=== PATIENT | male | born 1960 | race Caucasian/White ===

== ENCOUNTER → 2021-07-12 | Outpatient (CLI) | payer OTHER ==
--- NOTE | 2021-07-12 16:35 | MR ---
EXAMINATION TYPE: MR lumbar spine wo/w con DATE OF EXAM: 07/12/2021 COMPARISON: MRI lumbar spine March 22, 2016 HISTORY: Low back pain into legs, more so right leg, Prior surgery TECHNIQUE: Multiplanar, multisequence images of the lumbar spine is performed without and with IV contrast, util izing 6 mL intravenous Gadavist FINDINGS: Sagittal images of the lumbar spine show vertebral body heights and alignment to appear sta ble. Artifact from posterior intrapedicular rods and screws transfixing L4-S1 levels bilaterally and artificial disc material is redemonstrated. Vertebral body heights and disc space heights above this remain satisfactory. Multilevel disc desiccation is again seen The conus medullaris remains normal i n position and signal ending mid L1 level. The bone marrow signal intensity is within normal limits. No suspicious postcontrast enhancement. Mild multilevel anterior spurring. Axial images show T12-L1 and L1-L2 levels to remain within normal limits. Axial images at L2-L3 level show more prominent [id number] broad-based disc bulge effacing ante rior thecal sac and mild facet degenerative changes bilaterally. There is mild to moderate left great er than right bilateral anterior inferior neural foraminal narrowing. Interval degenerative progressi on from prior study noted. Axial images at L3-L4 level show artifact from surgical change. There is more prominent central disc herniation with left extrusion component extending inferiorly sagittal image 7. There is annular tear . There is effacement of anterior thecal sac. [id number] facet arthropathy bilaterally. Mild-to -moderate bilateral neural foraminal narrowing. Some degenerative progression from prior. Axial images at L4-L5 and L5-S1 levels show artifact from surgical change. There is posterior decompr ession changes. Spinal canal is preserved. Patent bilateral neural foramina. Ectatic abdominal aorta on current study measuring under 3.0 cm. IMPRESSION: Postsurgical changes lower lumbar spine. Alignment stable and satisfactory. Increasing de generative changes L2-L3 and L3-L4 levels noted.
== END | disposition home or self-care (01) ==
LOC: RADMRIMAIN 08:17
PROVIDERS: ATTEND Internal Medicine
DX: M51.36 Other intervertebral disc degeneration, lumbar region (principal)
CPT/HCPCS: 72158; A9585

== ENCOUNTER 2021-09-21 07:50 | Day surgery (SDC) | payer OTHER ==
[2021-09-21] MEDS ORDERED: diazePAM 5 MG TAB PO STA (08:39)
[2021-09-21 08:48] VITALS: TEMP 98
--- NOTE | 2021-09-21 13:05 | CT ---
EXAMINATION TYPE: CT lumbar myelogram DATE OF EXAM: 09/21/2021 COMPARISON: Correlation MRI HISTORY: 60-year-old male M54.5, low back pain, Lumbago oh. TECHNIQUE: Contiguous axial scanning of the lumbar spine performed after intrathecal administration o f 9 mL Isovue-M 200 coronal and sagittal reconstructions performed. CT DLP: 523.70 mGycm Automated exposure control for dose reduction was used. 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 Vertebral body heights are preserved. Satisfactory opacification of the spinal canal after subarachnoid injection. Postsurgical changes L4-S1 levels. Glenoid trace grade 1 retrolisthesis at L2-L3. Diffuse disc bulges are present at both L2-L3 and L3-L4. Ligamentum flavum thickening at L3-L4. Facet arthropathy mid to lower lumbar spine. Conus medullaris is normal. There is mild overall spinal canal stenosis at L2/L3 and more moderate at L3-L4. No holly canal compr omise. There is mild to moderate neuroforaminal narrowing secondary to facet arthropathy and disc bulging th roughout on both sides. No evident high-grade foraminal compromise. Mild degenerative change of the SI joints. Possible subtle 1.7 cm fluid collection along the dorsal midline in the interlaminar region, referred to axial image 61. IMPRESSION: 1. STATUS POST L4-S1 POSTERIOR AND INTERBODY FUSION. 2. FACET ARTHROPATHY AND DISC BULGE ABOVE THE FUSION. DEGENERATIVE TRACE GRADE 1 RETROLISTHESIS AT L2 -L3. 3. CHANGES RESULT IN MILD OVERALL SPINAL CANAL STENOSIS AT L2-L3 AND MORE MODERATE AT L3-L4. NO HOLLY CANAL COMPROMISE. 4. VARIABLE MILD AND MODERATE NEUROFORAMINAL NARROWING THROUGHOUT ON BOTH SIDES. NO HIGH-GRADE FORAMI NAL COMPROMISE SEEN. 5. SUSPECT A SUBTLE 1.7 CM FLUID COLLECTION ALONG THE DORSAL MIDLINE POSTERIORLY IN THE INTERLAMINAR REGION OF L5-S1. POSSIBLE POSTOPERATIVE SEROMA OR CHRONIC HEMATOMA. CORRELATE FOR ANY INFECTIOUS SIGN S/SYMPTOMS.
[2021-09-21 15:10] VITALS: RESP 16
[2021-09-21 15:11] VITALS: PULSE 50
[2021-09-21 15:12] VITALS: BP 135/80
--- NOTE | 2021-09-21 16:54 | FL ---
PROCEDURE: FL myelogram lumbosacral DATE: 09/21/2021 CLINICAL HISTORY: 60-year-old male M5 4.5, low back pain COMPLICATIONS: None SEDATION: 5 mg oral Valium administered by nursing. The patient and the patient's vital signs were monitored b y qualified independent radiology personnel. TECHNIQUE: The procedure and potential risks were explained to patient and an informed consent was obtained with teach back. Site and side was verified. A time out was performed. The patient was placed prone on the fluoroscopy table and the L4-L5 level was localized and the skin was marked and was prepped and draped in the usual sterile fashion. Lidocaine was used for local anesthesia. Utilizing fluoroscopic guidance a 22-gauge spinal needle was placed through the skin and into the subarachnoid space. Once clear CSF was visualized, 9 mL Isovue-M 200 was administered into the thecal sac. The patient tolerated the procedure well. After a 30 minute wait, the patient will be sent to CT for lumbar spine scan. The estimated blood loss was minimal. The patient's condition was unchanged following the procedure. Fluoroscopy time: 49 seconds Total images: 4 IMPRESSION: Successful L4-L5 intrathecal contrast injection for CT lumbar myelogram.
== END 2021-09-21 14:12 | disposition home or self-care (01) ==
LOC: RADPROMAIN 07:50
PROVIDERS: ATTEND Orthopaedic Surgery
DX: M48.061 Spinal stenosis, lumbar region without neurogenic claudication (principal); M51.36 Other intervertebral disc degeneration, lumbar region
CPT/HCPCS: 62304; 72132; Q9966

== ENCOUNTER 2021-12-11 08:55 | Inpatient (IN) | payer OTHER ==
--- NOTE | 2021-12-03 10:38 | P.HPOR ---
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 Location Diffuse Activity Modification Yes , unable to perform many of his daily functions due to his low back and radiculopathic symptomology. Hand Dominance Right DOI: Acute on chronic DOS: 06/03/[address] Martinez TREATMENTS COMPLETED: 6 weeks of PT completed? None since the time of the last appointment but has done it previously. How many sessions? N/A Did it help? No Physician directed home exercise completed? Yes, with no improvements. Medications List: [place] and Flexeril with mild improvements to his symptoms. Alternative interventions Chiropractic?:No. Injections Yes (lumbar NIECY) How many? 2 Did they help? No RFA: No SUBJECTIVE: Patient presents to the office for a pre-operative evaluation. Since the time of the last appointment the patient reports that his symptoms have continued to persist and give him significant issues. Patient reports that his symptoms are severe and he is unable to complete most of his daily functions due to pain. He has failed all conservative treatments tried and is ready to proceed with the discussed procedure. All questions and concerns were addressed and the patient expressed understanding. He denies any bladder or bowel issues, no perineal numbness/tingling, and ambulates without the use of any aides. HPI: Patient last presented to the office on 10/15/2021 for a follow up evaluation of his low back and to review the results of his CT scan obtained after the time of the last appointment. Since the last appointment he notes that his symptoms have failed to improve. With this, he states that he has been doing home exercises, without improvements, but denies having completed any additional PT since the time of the last appointment. Overall he feels that his symptoms have not improved. Due to his symptoms he notes that his daily functionality has deteriorated since the initial onset (no injury). Patient does present to the office today with the use of his LSO brace, which he reports does help him with stability. Of note, the patient does state that he is a daily smoker but does plan on stopping starting today. Mr. Palacio last presented to the office on 08/31/2021 for an evaluation of his low back. At that time the patient notes that he has had low back pain for many years, having a lumbar fusion done on 06/03/[address] Martinez. After this operation he notes that he did have any improvements to his symptoms but his pain has gradually returned. This return of pain has come without any injury or trauma after the operation. Since this onset of his symptoms after his operation he has noticed a considerable increase in his pain along with prominent weakness about the bilateral lower extremities, right worse than left. Regarding the lumbar pain he notes that it is diffuse throughout the low back and does radiate down into the bilateral hips. His primary concern at this time is the weakness in the right lower extremity. His symptoms are exacerbated with ambulation and standing for extended periods of time. Due to this he is unable to complete many of his daily functions. Regarding treatments he notes that he has done PT, home exercises, and had 2 lumbar NIECY injections. All of these did not relieve his symptoms. Otherwise the patient does not present to the office with the use of any ambulatory aides. The patients' past social, medical, family, surgical history, as well as review of systems, have been reviewed. Please refer to the Neurosurgery History and Physical form that has been scanned in to our electronic medical record system. 14 points review of systems completed and as stated in HPI, all other systems reviewed are negative. Review of Systems All systems: negative Constitutional: Reports as per HPI Past Medical History Past Medical History: Coronary Artery Disease (CAD), Deep Vein Thrombosis (DVT), GI Bleed, Hyperlipidemia, Hypertension, Vascular Disorder Additional Past Medical History / Comment(s): hx migraines, ruptured disk. L.E blood clot History of Any Multi-Drug Resistant Organisms: None Reported Past Surgical History: Appendectomy, Back Surgery, Heart Catheterization With St ent, Orthopedic Surgery, Tonsillectomy Additional Past Surgical History / Comment(s): Laminectomy and spinal fusion, luann shoulder surgery, COLONOSCOPY/endoscopy 06/24/16 Past Anesthesia/Blood Transfusion Reactions: No Reported Reaction Date of Last Stent Placement:: 2011 Past Psychological History: Anxiety Smoking Status: Current some day smoker Past Alcohol Use History: None Reported Additional Past Alcohol Use History / Comment(s): QUIT SMOKING 6 MONTHS AGO BUT HAS RECENTLY STARTED AGAIN. SMOKING LESS THAN 1/2 PPD. USING VAPORIZER. Past Drug Use History: Marijuana Additional Drug Use History / Comment(s): 1-2 x daily-use of marijuana. Uses medical marijuana for his back pain. - Past Family History Father Family Medical History: Cancer Additional Family Medical History / Comment(s): Father with lung cancer. Mother with hypertension Medications and Allergies Home Medications Medication Instructions Recorded Confirmed Type Atenolol 50 mg PO DAILY 05/02/14 09/21/21 History Cyclobenzaprine [Flexeril] 10 mg PO BID 05/02/14 09/21/21 History Prazosin HCl 5 mg PO BID 05/02/14 09/21/21 History Simvastatin [Zocor] 20 mg PO HS 05/02/14 09/21/21 History amLODIPine BESYLATE [Norvasc] 5 mg PO DAILY 05/02/14 09/21/21 History lisinopriL [Zestril] 20 mg PO DAILY 05/02/14 09/21/21 History HYDROcodone/APAP 10-325MG [E[place]ka 1 each PO Q6H 07/20/15 09/21/21 History 10] ALPRAZolam 1 mg PO BID 06/19/16 09/21/21 History Aspirin 325 mg PO DAILY 06/19/16 09/21/21 History Gabapentin [Neurontin] 300 mg PO TID 09/04/21 09/21/21 History Rivaroxaban [Xarelto] 2.5 mg PO DAILY 09/04/21 09/21/21 History Allergies Allergy/AdvReac Type Severity Reaction Status Date / Time clarithromycin [From Biaxin] Allergy Unknown Rash/Hives Verified 09/21/21 08:50 levofloxacin [From Levaquin] Allergy Unknown Rash/Hives Verified 09/21/21 08:50 Penicillins Allergy Unknown Rash/Hives Verified 09/21/21 08:50 Physical Examination Osteopathic Statement: *. No significant issues noted on an osteopathic structural exam other than those noted in the History and Physical/Consult. PHYSICAL EXAMINATION: General: Awake, alert, appropriate for age, in no acute distress. HEENT: No unusual neck masses around region of lateral neck triangle, thyroid, supraclavicular groove Extremities: Skin warm and dry without acute lesions, coloration, temperature, skin intact, no tenderness or erythema Integument: Hairy patches: Absent Dorsal skin dimples: Absent Cafe au lait spots: Absent Surgical incisions: No Palpation: Please see Pain drawing on Intake sheet for further detail. Midline spinal tenderness: No E6 Paralumbar tenderness: yes E6 Parathoracic tenderness: No E6 Buttocks tenderness: No E6 Special findings: yes Prominent left SI joint tenderness to palpation POSTURAL and MUSCULO-SKELETAL EVALUATION: Coronal Balance: NEUTRAL Recumbent testing: Patient is able to lay flat on back Sagittal Balance: NEUTRAL Shoulder Profile: LEVEL Pelvic Girdle: LEVEL Neck ROM: UNRESTRICTED Lumbar ROM: RESTRICTED Shoulder ROM: Symmetrical Hip ROM: Symmetrical Knee ROM: Symmetrical Hands: Normal appearance, symmetrical Feet: Normal appearance, Symmetrical VASCULAR STATUS : LEFT RIGHT Wrist Pulses INTACT INTACT Pedal Pulses (Dors. pedis & post.tibialis) INTACT INTACT Color NORMAL NORMAL Edema Absent Absent NEUROLOGIC EXAMINATION: Mental Status:Awake and alert, fully oriented, with normal attention, concentration and memory, and fluent, appropriate speech. Cranial Nerves: I: Olfactory not tested. II: Visual acuity normal, no visual field deficit noted with confrontation. III,IV: Normal pupillary reflexes & intact extraocular movements without nystagmus. V,: Intact symmetrical facial sensation. VII: Intact symmetrical facial motor movement VIII: Hearing intact. IX,X: Intact gag, swallow, & normal voice. XI: Sternocleidomastoid, trapezius function intact. XII: Tongue midline with normal movements. L'hermitte's Sign: Negative / absent Spurling'Sign: Absent bilaterally. Cubital percussion test: Absent bilaterally. Erwin-Tinel sign - Carpal region: Absent bilaterally. Straight Leg Raising: Absent bilaterally. Crossed straight leg raise: negative O8 MOTOR EXAM (0-5/5, N/T) STRENGTH RIGHT LEFT Shoulder Abd (not part of the ZHOU score) 5 5 Elbow Flexors 5 5 Elbow Extensor 5 5 Wrist Dorsiflexors 5 5 Finger Abductor 5 5 Carpenter Assistant 5 5 Hip Flexor (Not part of ZHOU Motor score) 4 4+ Knee Flexor 5 5 Knee Extensor 5 5 Ankle dorsiflexor 4 4+ Ankle plantarflexion 4 4+ Extensor hallucis 5 5 REFLEXES(0-4/2, NT) RIGHT LEFT Upper Extremities 2 2 Lower Extremities 2 2 Pathological Reflexes RIGHT LEFT Prasad's Absent Absent Clonus Absent Absent Babinski Absent Absent # Indicates mechanical impairment Muscle appearance: Symmetrical, without signs of atrophy or dystrophy. Sensory system (0-4, N/T) Test type RU MIKE RL LL Joint-Position 2 2 2 2 Vibration 2 2 2 2 Pain & LT sense 2 2 2 2 Dermatomal Deficit: None None L2-4 L3-5 R>L radiculopathy Gait and Functional Evaluation: Ambulatory aids: Independent Romberg's test: Intact bilaterally Toe heel walk / heel-toe walk intact while maintaining satisfactory balance? yes Squatting/straightening w/o assistance to a min of 60 degree knee flexion? yes Single leg stance: intact Trendelenburg sign negative bilaterally Hand and finger dexterity intact bilaterally? yes Disdiadochokinesis examination negative bilaterally? yes Results RADIOGRAPHIC STUDIES: XRay taken on 08/31/21 of Lumbar Spine: Multiple views of the lumbar spine obtained and reviewed in the office. This demonstrates postsurgical changes L4 to S1 with posterior lateral interbody fusion which is noted. There is good fusion construct anteriorly as well as posteriorly. Hardware appears to be in good position with no evidence of fracture dislocation or loosening. There is some adjacent segment disease noted at L3-L4 which is mild. No fracture dislocation otherwise noted.we will maintain sagittal balance as well as coronal balance. AP pelvis demonstrates congruent femoral last evidence level pelvis no fracture or dislocation MRI scan from 07/12/2021 of Lumbar Spine: this is reviewed and demonstrates again postsurgical changes L4 to S1 with hardware in good position of his fracture dislocation vision or other issues. There may be some residual foraminal stenosis on the right hand side at L4 5 and L5-S1 which is noted. Adjacent segment disease noted L3-L4 which is mild. No severe stenosis in this area. L2-3 showing mild stenosis secondary to broad-based disc bulge at this level. No fracture. CT myelogram from 09/21/2021 of the lumbar spine reviewed today by Dr. Solis indicates: This demonstrates moderate to severe stenosis from L2-L4 with the worst at L2-3 and L3-4. This is due to disc bulging, facet hypertrophy and ligamental hypertrophy causing central as well as foraminal stenosis at these levels. There is facet arthropathy noted at these levels as well however disc heights are fairly well maintained as well as alignment. There are no fractures or dislocations noted at this time. Assessment and Plan Assessment: 1. S/P L4-S1 fusion 2. L2-L3 stenosis severe 3. L3-L4 stenosis severe 4. Right lower extremity radiculopathy 5. Neurogenic claudication Plan: 1. Discussed a L2-L5 laminectomy with decompression based on his clinical findings, imaging, and failure to improve with conservative treatments. All risks and benefits of the procedure were discussed and the patient expressed understanding. Additionally all questions and concerns were answered and the patient would like to proceed with scheduling. Spine Surgery Risk Review Frank Palacio is a 61 y/p white male presenting for evaluation of low back pain. It was my pleasure to have seen and examined Frank Palacio. In our visit today we have had a chance to go over subjective complaints, physical examination findings and treatments including the natural course history without intervention and various interventional options. The patients imaging demonstrates XRAY: Multiple views of the lumbar spine obtained and reviewed in the office. This demonstrates postsurgical changes L4 to S1 with posterior lateral interbody fusion which is noted. There is good fusion construct anteriorly as well as posteriorly. Hardware appears to be in good position with no evidence of fracture dislocation or loosening. There is some adjacent segment disease noted at L3-L4 which is mild. No fracture dislocation otherwise noted.we will maintain sagittal balance as well as coronal balance.AP pelvis demonstrates congruent femoral last evidence level pelvis no fracture or dislocation. MRI: demonstrates again postsurgical changes L4 to S1 with hardware in good position of his fracture dislocation vision or other issues. There may be some residual foraminal stenosis on the right hand side at L4 5 and L5-S1 which is noted. Adjacent segment disease noted L3-L4 which is mild. No severe stenosis in this area. L2-3 showing mild stenosis secondary to broad-based disc bulge at this level.No fracture. CT Myelogram: demonstrates moderate to severe stenosis from L2-L4 with the worst at L2-3 and L3-4. This is due to disc bulging, facet hypertrophy and ligamental hypertrophy causing central as well as foraminal stenosis at these levels. There is facet arthropathy noted at these levels as well however disc heights are fairly well maintained as well as alignment. There are no fractures or dislocations noted at this time. On physical exam, Frank Palacio demonstrates bilateral lower extremity weakness with acute pain with palpation of the lumbar spine. I have explained to the patient that as their condition progresses it will cause further neurological deficits and eventual paralysis. Based on the patients imaging, physical exam, and the rapid progression and disabling nature of their symptoms, at this time I recommend surgery in the form or a: L2-L5 laminectomy with decompression. I discussed the risk and benefits of this procedure at length with Frank Palacio. The patient agreed to considered pursuing the procedure abovementioned. Prior to surgery, she should follow up with her PCP (Cardio, ID, IM etc) for clearance. Questions were invited and answered, and the patient wishes to proceed as outlined below. Currently, I am recommendin.L2-L5 laminectomy with decompression with possible Removal of hardware and reinstrumentation of L2-S1. 2.Follow up with PCP for surgical clearance 3.Review of surgical risks and benefits as well as an educational packet on the proposed surgical procedure. Risks: All surgical procedures come with inherent risks, including those related to positioning, anesthesia, intraoperative findings, and postoperative complications. It is important to understand that surgery does not come with any guarantee of a successful outcome as complications and adverse events are always possible. The patient was given a handout in office today discussing the surgical procedure and risks associated with the intervention, both of which were discussed with the patient. These risks include but are not limited to the following: * Experiencing same, different or even worse symptoms in back, neck, arms, or legs compared to before surgery. Requiring further surgery or other forms of treatment presently or at some time in the future at same or other levels of the intended spine surgery. On an extreme but fortunately relatively rare basis severe complication such as blindness, stroke, heart attack, temporary and/or permanent nerve injury, paralysis, coma, or may occur, sometimes without known explanation. Surgical complications may include but are not limited to risk of infection, fluid accumulation in the surgical dissection site, including a seroma or hematoma, that requires additional surgery, wound drainage, bleeding, new numbness or weakness, vision changes/loss, spinal fluid leakage, non-healing and/or infected incision, headaches, difficulty or inability to swallow, hoarseness, hemopneumothorax, pneumothorax, impotence, retrograde ejaculation, vaginal dryness; injury to nerves, spinal cord, blood vessels, lymphatics or other vital organs (i.e., bowel injury, injury to the great vessels); heterotopic bone formation; complications related to the hardware such as screws, rods, cages including misplaced hardware, device failure, instrumentation at the wrong spine level, hardware fracture/breakage, or hardware loosening; vertebral failure of the spinal column above or below the newly placed hardware; retained surgical instrumentations or devices and the need for further surgery. * Medical risks of the planned spine surgery include but are not limited to generalized Infections to the whole body or local areas outside of the surgical site (sepsis), heart attack, bleeding, anaphylaxis, meningitis, seizure, epilepsy, hearing loss, burn ward, laceration of the head or other areas of the body, bruising, hypersensitivity of the skin, bladder over distension; allergic reaction; shoulder injury related to positioning; fat, blood and air clots to other areas of the body like heart, lungs, brain; failure of internal organs such as lungs, kidneys, liver and excessive bleeding. If blood transfusions are necessary, note that transfusions may cause intolerance reactions such as anaphylaxis or other complex reactions. Despite best efforts, the results of spine surgery might not heal in terms of bone, soft tissues such as skin, fascia, ligaments, and joints. Additionally, in order to achieve best possible results, spine surgery may be carried out beyond the initially planned levels and involve decompression, fusion including insertion of hardware at levels other than the original intended area of surgical interest change some portions of the procedure in order to ensure the best possible outcomes. With spine surgery and spinal fusion, there are different off label uses of instrumentation (devices, implants and hardware) as well as biological substances (bone morphogenic proteins, demineralized bone matrix) as well as using extra bone from allograft sources (i.e. cadaver bone) or autograft (iliac crest bone, ribs, or the spine itself). The patient has been given information about these practices and their inherent risks and benefits. [facility] is an educational center that serves as a training facility for neurosurgical and orthopedic spine residents and fellows. Residents are physicians who are completing their surgical intensive training following medical school. They assist in the operating room with direct supervision of the attending surgeons. Greig are surgeons who have completed their training and eligible for board certification. They have opted for an elective year of more specialized training in their field. They assist in the operating room under the supervision of the attending surgeons. Physician assistants are medically trained surgical providers who function in the outpatient, inpatient, and operating room setting under the direct supervision of the attending surgeon. [facility] has multiple operating rooms with single and overlapping rooms running daily. They currently function under the required guidelines as produced by the [facility] Finance Committee with regards to the overlapping rooms and will continue to comply with changes to this policy as they occur. The requirements include and are complied with as follows: (1) the critical portions of the overlapping rooms will not occur at the same time, (2) the attending physician will be physically present during the critical portions of the procedure and immediately available during the entire case, and (3) a back-up attending is designated should the primary attending not be immediately available. The patient has had a chance to review all the listed information, has been given print outs detailing this information, and has had all his/her questions answered to their satisfaction. It was my pleasure to have seen and examined Frank Palacio. In our visit today we have had a chance to go over my understanding of our patient's current condition, the natural course history without intervention and various interventional options. Questions were invited and answered, and the patient wishes to proceed as outlined above. I have seen and examined the patient for 25 minutes and we have spent more than 50% of the time in repeat and detailed counseling about the patient's condition, its natural course history with out and as much as can be predicted with surgery and re-review of various surgical treatment options. In conclusion, Frank Palacio requested we proceed with the above suggested surgery and are willing to accept risks and limitations of the suggested surgery as nature of the disease process and our best attempts at treatment for the condition. Thank you again for allowing us to be part of your patient's care. Please don't hesitate to contact me if you have any further questions. Signed and authenticated by: Stewart Solis DO [facility] [address] [facility], [address] [address]
[2021-12-04 17:07] VITALS: BMI 26.1
[~2021-12-11 08:55] MED LIST: ACETAMINOPHEN TAB 500 MG TAB PO PRN; DEXAMETHASONE SOD PHOSPHATE 4 MG/ML 1 ML VIAL IV ONE; GABAPENTIN 300 MG CAP PO PRN; LIDOCAINE 1% (10MG/ML) FOR IV START INTRADERMA PRN; MIDAZOLAM 2 MG/2 ML VIAL IV PRN; ONDANSETRON 4 MG/2 ML VIAL IVP ONE; ONDANSETRON 4 MG/2 ML VIAL IVP PRN; TRANEXAMIC ACID 1,000 MG in SODIUM CHLORIDE 0.9% 100 ML IVPB PRN
[2021-12-11] MEDS: LACTATED RINGERS 1,000 ML IV SCH (09:33)
[2021-12-11 09:59] LABS: Basophils % (A) 0 %; Eosinophils # (A) 0.1 k/uL (0-0.7); Eosinophils % (A) 2 %; HCT 44.5 % (39.0-53.0); HGB 14.6 gm/dL (13.0-17.5); Lymphocytes # (A) 2.5 k/uL (1.0-4.8); Lymphocytes % (A) 37 %; MCH 31.6 pg (25.0-35.0); MCHC 32.8 g/dL (31.0-37.0); MCV 96.6 fL (80.0-100.0); Mean Platelet Volume 7.3; Monocytes # (A) 0.5 k/uL (0-1.0); Monocytes % (A) 8 %; Neutrophils # (A) 3.4 k/uL (1.3-7.7); Neutrophils % (A) 50 %; Platelet Count 231 k/uL (150-450); WBC 6.8 k/uL (3.8-10.6)
[2021-12-11] MEDS ORDERED: fentaNYL (PF) 50 MCG/ML 2 ML AMP IVP ONE ×2 (10:02→10:25)
[2021-12-11 10:08] LABS: Albumin 3.8 g/dL (3.5-5.0); Potassium 4.6 mmol/L (3.5-5.1); Total Protein 6.6 g/dL (6.3-8.2)
[2021-12-11 10:09] LABS: Calcium 9.1 mg/dL (8.4-10.2); Total Bilirubin 0.3 mg/dL (0.2-1.3)
[2021-12-11] MEDS ORDERED: MIDAZOLAM 2 MG/2 ML VIAL IVP ONE (10:27)
--- NOTE | 2021-12-11 11:03 | XR ---
EXAMINATION TYPE: XR chest 1V confirm line [facility] DATE OF EXAM: 12/11/2021 COMPARISON: Chest x-ray April 25, 2014 HISTORY: Central line placement. TECHNIQUE: Single AP portable frontal upright view of the chest is obtained. FINDINGS: There is new right internal jugular central venous catheter terminating in right atrium. T here is azygos lobe/fissure redemonstrated. No suspicious focal airspace opacity, pleural effusion, o r pneumothorax is seen bilaterally. The cardiac silhouette size is stable and within normal limits. Multilevel spurring in thoracic spine is redemonstrated. IMPRESSION: As above.
--- NOTE | 2021-12-11 11:04 | XR ---
EXAMINATION TYPE: XR chest 1V confirm line [facility] DATE OF EXAM: 12/11/2021 COMPARISON: 12/11/2021 HISTORY: Central line placement TECHNIQUE: Single frontal view of the chest is obtained. FINDINGS: Right-sided central line seen with tip overlying the SVC atrial junction. No pneumothorax. Underlying COPD noted. Heart size normal. No overt failure focal pneumonia. No pleural effusion. IMPRESSION: 1. Central line appears in good position with no sizable pneumothorax.
--- NOTE | 2021-12-11 11:19 | P.ANPRN ---
Procedure Note - Anesthesia - Invasive Line Right Arterial Line Time Out Performed: Yes Date of Procedure: 12/11/21 Time of Procedure: 10:01 Location of Patient: PreOp Preparation: Sterile Prep, Sterile Dressing Arterial Line Location: Radial Ultrasound Used: No Purpose - Visualization and Identification of Vasculature: No Image Stored and Saved: No Narrative: Central line placement per sterile protocol utilized.
--- NOTE | 2021-12-11 11:21 | P.ANPRN ---
Procedure Note - Anesthesia - Invasive Line Right Central Line Time Out Performed: Yes Date of Procedure: 12/11/21 Time of Procedure: 10:13 Location of Patient: PreOp Preparation: Sterile Prep, Sterile Dressing Arterial Line Location: Brachial (Right internal Jaqular vein) Ultrasound Used: Yes Purpose - Visualization and Identification of Vasculature: Yes Needle Guage: 7 F Image Stored and Saved: Yes Narrative: Central line placement per sterile protocol utilized.
[2021-12-11] MEDS ORDERED: LIDOCAINE 1% INJ 10MG/ML (20 ML MDV) ONE (12:48)
[2021-12-11] MEDS ORDERED: ROCURONIUM 10 MG/ML (5 ML VIAL) IV ONE (12:48)
[2021-12-11] MEDS ORDERED: NEOSTIGMINE 1 MG/ML 10 ML VIAL ONE (12:48)
[2021-12-11] MEDS ORDERED: MIDAZOLAM 2 MG/2 ML VIAL ONE (12:48)
[2021-12-11] MEDS ORDERED: fentaNYL (PF) 50 MCG/ML 2 ML AMP ONE (12:48)
[2021-12-11] MEDS ORDERED: SUCCINYLCHOLINE CHLORIDE 100 MG/5 ML SYR IV ONE (12:48)
[2021-12-11] MEDS ORDERED: PROPOFOL 10 MG/ML 20 ML VIAL IV ONE (12:48)
[2021-12-11] MEDS ORDERED: SODIUM CHLORIDE 0.9% 100 ML BAG ONE (12:48)
[2021-12-11] MEDS ORDERED: TRANEXAMIC ACID 1,000 MG/10 ML VIAL ONE (12:48)
[2021-12-11] MEDS ORDERED: KETOROLAC 15 MG/ML 1 ML VIAL ONE (12:48)
[2021-12-11] MEDS ORDERED: HYDROmorphone (PF) 1 MG/ML ONE (12:48)
[2021-12-11] MEDS ORDERED: GLYCOPYRROLATE 0.2 MG/ML 2 ML VIAL ONE (12:48)
[2021-12-11] MEDS ORDERED: KETAMINE 10 MG/ML 20 ML VIAL ONE (12:48)
[2021-12-11] MEDS ORDERED: BUPIVACAINE (PF) 0.25% 30 ML VIAL SQ ONE (13:50)
[2021-12-11] MEDS ORDERED: THROMBIN (BOVINE) 5,000 UNIT VIAL TOPICAL ONE (13:51)
[2021-12-11] MEDS ORDERED: GELATIN SPONGE,ABSORB (LARGE) 1 EACH SPONGE MISCELLANE ONE (13:51)
[2021-12-11] MEDS ORDERED: SODIUM CHLORIDE 0.9% 50 ML with ceFAZolin 2,000 MG IV ONE ×2 (16:53)
[2021-12-11] MEDS ORDERED: LACTATED RINGERS 1,000 ML IV ONE ×2 (16:55)
[2021-12-11] MEDS ORDERED: HYDROcodone/APAP 5-325MG 1 EACH TAB PO PRN (17:36)
[2021-12-11] MEDS: HYDROmorphone 0.5 MG/0.5 ML SYRINGE IVP PRN ×3 (18:02→20:56)
--- NOTE | 2021-12-11 18:22 | XR ---
EXAMINATION TYPE: XR chest 1V portable DATE OF EXAM: 12/11/2021 COMPARISON: 12/11/2021 HISTORY: Line placement TECHNIQUE: FINDINGS: Heart is normal. There is some mild linear density left lung base. There are no hilar katie s. There is no pleural effusion. There is a right central venous catheter with tip in the superior ve na cava. There are chest leads. IMPRESSION: Mild subsegmental atelectasis left lung base is new compared to exam earlier today. No he art failure.
--- NOTE | 2021-12-11 22:15 | CT ---
EXAMINATION TYPE: CT lumbar spine wo con DATE OF EXAM: 12/11/2021 COMPARISON: None HISTORY: L2-S1 FUSION CT DLP: 1001.8 mGycm Automated exposure control for dose reduction was used. Images obtained from the level of T11-S3 vertebra without contrast. There is normal alignment of the vertebra. There is disc prosthesis from L3 to S1. There is metal art ifact with posterior fusion surgery from L3 to S1. There is mild infiltrate or atelectasis at the pos terior lung bases. There is no lumbar paraspinal mass. Abdominal aorta is atheromatous. There is meta l artifact. There is a drain in the epidural space posteriorly at the L3 level. There is revision of the surgery at the lumbar spine at L3 level compared to last exam. IMPRESSION: There is revision of the posterior fusion surgery that now includes L3 level. There is postsurgical c hanges with drains and fluid and air bubbles in the posterior tissues. Exam limited by metal artifact . There is some mild infiltrate and atelectasis at the lung bases which is new compared to old exam.
[2021-12-11] MEDS: ACETAMINOPHEN TAB 325 MG TAB PO SCH (22:30)
[2021-12-11] MEDS: GABAPENTIN 300 MG CAP PO SCH (22:35)
[2021-12-12] MEDS: ACETAMINOPHEN TAB 325 MG TAB PO SCH ×5 (00:37→22:55)
[2021-12-12] MEDS: HYDROmorphone 0.5 MG/0.5 ML SYRINGE IVP PRN ×6 (00:38→22:55)
[2021-12-12] MEDS: CYCLOBENZAPRINE 5 MG TAB PO PRN ×4 (04:33→22:54)
[2021-12-12] MEDS: HYDROcodone/APAP 10-325MG 1 EACH TAB PO PRN ×4 (04:36→21:21)
[2021-12-12] MEDS: LACTATED RINGERS 1,000 ML IV SCH (06:00)
[2021-12-12 06:17] LABS: Basophils % (A) 0 %; Eosinophils # (A) 0.1 k/uL (0-0.7); Eosinophils % (A) 1 %; HCT 39.7 % (39.0-53.0); Lymphocytes # (A) 1.9 k/uL (1.0-4.8); Lymphocytes % (A) 14 %; MCH 31.7 pg (25.0-35.0); MCHC 32.8 g/dL (31.0-37.0); MCV 96.6 fL (80.0-100.0); Monocytes # (A) 0.9 k/uL (0-1.0); Monocytes % (A) 7 %; Neutrophils # (A) 10.6 k/uL (1.3-7.7); Neutrophils % (A) 78 %; Platelet Count 221 k/uL (150-450); RBC 4.11 m/uL (4.30-5.90); RDW 12.4 % (11.5-15.5); WBC 13.6 k/uL (3.8-10.6)
[2021-12-12] MEDS: GABAPENTIN 300 MG CAP PO SCH ×2 (07:52→21:21)
--- NOTE | 2021-12-12 08:14 | P.PN ---
Subjective Progress Note Date: 12/12/21 Pt s/e no issues overnight. Pain controlled. Has not been up. Gross in place. Denies new numbness/tingling. No bowel bladder issues. No perineal numbness. Objective - Vital Signs Vital signs: Vital Signs Temp 99.0 F 12/12/21 05:00 Pulse 75 12/12/21 05:00 Resp 16 12/12/21 05:00 BP 127/80 12/12/21 05:00 Pulse Ox 95 12/12/21 05:00 Intake & Output 12/11/21 12/12/21 12/12/21 18:59 06:59 18:59 Intake Total 2700 Output Total 830 800 Balance 1870 -800 Weight 80.8 kg Intake: IV 2700 Output: Drainage 200 Back 200 Urine 480 600 Estimated Blood Loss 350 Other: Voiding Method Indwelling Catheter - Exam 4+/5 all major muscle groups LE b/l 5/5 all UE b/l SILT L2-S1 Neg hoffmans Neg babnski No clonus 2/4 DTR all UE and LE 2/4 DP/PT pulses Incision CDI Drain 200 cc overnight Mild TTP - EENT Eyes: Present: PERRLA - Neck Neck: Present: normal ROM - Respiratory Details: Normal respirations - Cardiovascular Rhythm: regular - Gastrointestinal General gastrointestinal: Present: soft - Neurologic Neurologic: Present: CNII-XII intact - Musculoskeletal Musculoskeletal: Present: strength equal bilaterally - Psychiatric Psychiatric: Present: A&O x's 3 - Labs CBC & Chem 7: 12/12/21 05:21 12/11/21 09:27 Labs: Abnormal Lab Results - Last 24 Hours (Table) 12/11/21 12/12/21 Range/Units 09:27 05:21 WBC 13.6 H (3.8-10.6) k/uL RBC 4.11 L (4.30-5.90) m/uL Neutrophils # 10.6 H (1.3-7.7) k/uL Sodium 136 L (137-145) mmol/L Glucose 118 H (74-99) mg/dL AST 16 L (17-59) U/L Assessment and Plan Assessment: POD Revision L3-S1 fusion with L2-4 decompression 1. S/P L4-S1 fusion 2. L2-L3 stenosis severe 3. L3-L4 stenosis severe 4. Right lower extremity radiculopathy 5. Neurogenic claudication Plan: -Appreciate consultants -Pain control -GI/DVT ppx OK for heparin today -Maintain drain for now, record output -PT/OT -Teds/SCDs Early ambulation. OOB with all meals -Brace for up and about, no need for brace with PT -Walker for ambulation -Plan on home with home health 1-2 days
--- NOTE | 2021-12-12 09:05 | XR ---
EXAM TYPE: LUMBAR SPINE X RAY SERIES COMPARISON: NONE HISTORY: Postop TECHNIQUE: 2 views are submitted. FINDINGS: Intraoperative views demonstrate limited resolution postsurgical changes suggestive laminectomy with transpedicular screws. The limited assessment alignment is grossly IMPRESSION: Postoperative change
--- NOTE | 2021-12-12 18:11 | P.CONS ---
History of Present Illness - Reason for Consult Consult date: 12/12/21 - History of Present Illness Frank Palacio, is a 61-year-old male who was admitted to [facility] by Dr. Solis after presenting with a chief complaint of Low back pain, difficulty with almbulation, and lower extremities radiculopathy, patient has known history of chronic back pain requiring narcotics for pain management, he has known history of lumbar spine surgery in 2014, he also has a history of multiple falls with back injury. Today he underwent Lumbar laminectomy L3-S1 revision fusion with L2 -S1 decompression and removal of hardware, he was admitted to medical floor post surgery. Medical consultation was requested for management while hospitalized. Patient has a known history of hypertension, hyperlipidemia, coronary artery disease with previous history of angioplasty and stent placement, no recent stents in the last 12 months, he also has a history of lower extremity DVT followed by Dr. House and maintained on Xarelto. Xarelto was discontinued 10 days ago in anticipation of back surgery. On review of systems patient is alert and oriented 3 he is still complaining of back pain otherwise he denies any complaints at this time, there is no fever or chills no headache or dizziness no chest pain or shortness of breath no cough no nausea or vomiting no abdominal pain no diarrhea and no urinary symptoms. Past Medical History Past Medical History: Coronary Artery Disease (CAD), Deep Vein Thrombosis (DVT), GI Bleed, Hyperlipidemia, Hypertension, Vascular Disorder Additional Past Medical History / Comment(s): hx migraines, ruptured disk. L.E blood clot History of Any Multi-Drug Resistant Organisms: None Reported Past Surgical History: Appendectomy, Back Surgery, Heart Catheterization With Stent, Orthopedic Surgery, Tonsillectomy Additional Past Surgical History / Comment(s): Laminectomy and spinal fusion, luann shoulder surgery, COLONOSCOPY/endoscopy 06/24/16, BILAT KNEE SX Past Anesthesia/Blood Transfusion Reactions: No Reported Reaction Date of Last Stent Placement:: 2011 Past Psychological History: Anxiety Smoking Status: Current some day smoker Past Alcohol Use History: None Reported Additional Past Alcohol Use History / Comment(s): QUIT SMOKING 6 MONTHS AGO BUT HAS RECENTLY STARTED AGAIN. SMOKING LESS THAN 1/2 PPD. USING VAPORIZER. Past Drug Use History: Marijuana Additional Drug Use History / Comment(s): 1-2 x daily-use of marijuana. Uses medical marijuana for his back pain. - Past Family History Father Family Medical History: Cancer Additional Family Medical History / Comment(s): Father with lung cancer. Mother with hypertension Medications and Allergies Home Medications Medication Instructions Recorded Confirmed Type Atenolol 50 mg PO DAILY 05/02/14 12/11/21 History Cyclobenzaprine [Flexeril] 10 mg PO BID 05/02/14 12/11/21 History Prazosin HCl 5 mg PO BID 05/02/14 12/11/21 History Simvastatin [Zocor] 20 mg PO HS 05/02/14 12/11/21 History amLODIPine BESYLATE [Norvasc] 5 mg PO DAILY 05/02/14 12/11/21 History lisinopriL [Zestril] 20 mg PO DAILY 05/02/14 12/11/21 History HYDROcodone/APAP 10-325MG [[place] 1 each PO Q6H 07/20/15 12/11/21 History 10] ALPRAZolam 1 mg PO BID 06/19/16 12/11/21 History Gabapentin [Neurontin] 300 mg PO TID 09/04/21 12/11/21 History Rivaroxaban [Xarelto] 2.5 mg PO DAILY 09/04/21 12/11/21 History Allergies Allergy/AdvReac Type Severity Reaction Status Date / Time clarithromycin [From Biaxin] Allergy Unknown Rash/Hives Verified 12/11/21 09:23 levofloxacin [From Levaquin] Allergy Unknown Rash/Hives Verified 12/11/21 09:23 Penicillins Allergy Unknown Rash/Hives Verified 12/11/21 09:23 Physical Exam Vitals: Vital Signs Temp Pulse Resp BP Pulse Ox 12/12/21 12:58 98.3 F 74 18 135/88 98 12/12/21 05:00 99.0 F 75 16 127/80 95 12/11/21 19:36 97.6 F 60 16 138/86 97 12/11/21 18:50 60 18 138/67 99 12/11/21 18:30 62 18 135/76 100 12/11/21 18:15 67 18 152/87 100 12/11/21 18:00 65 18 147/80 100 12/11/21 17:45 67 20 153/88 100 12/11/21 17:41 96.8 F L 78 20 140/85 100 Intake and Output 12/12/21 12/12/21 12/12/21 06:59 14:59 22:59 Intake Total 2450 Output Total 221 95 0645 Balance -700 -40 1240 Intake: Intake, IV Titration 290 Amount Lactated Ringers 1,000 ml 240 @ 0 mls/hr IV [facility] Rx#:[id number] ceFAZolin 2 gm In Sodium 50 Chloride 0.9% 50 ml @ 100 mls/hr IVPB Q8H [facility] Rx#: [id number] Oral 2160 Output: Drainage 100 40 60 Back 100 40 60 Urine 600 1150 Other: Voiding Method Indwelling Catheter # Voids 3 In general patient is alert and oriented x 3 in no distress HEENT head normocephalic and atraumatic Neck is supple no JVD no goiter no lymphadenopathy no carotid bruit Chest examination is clear to auscultation no crackles no wheezing Cardiac exam reveals regular heart sounds S1 and S2 no gallops no murmurs Abdomen is soft nontender no organomegaly with normal bowel sounds Extremity exam reveals no edema no cyanosis or clubbing Neurological examination reveals no gross focal deficits Results CBC & Chem 7: 12/12/21 05:21 12/11/21 09:27 Labs: Abnormal Lab Results - Last 24 Hours (Table) 12/12/21 Range/Units 05:21 WBC 13.6 H (3.8-10.6) k/uL RBC 4.11 L (4.30-5.90) m/uL Neutrophils # 10.6 H (1.3-7.7) k/uL Assessment and Plan Plan: Chronic back pain, with history of previous surgery for lumbar spinal stenosis in 2014, patient underwent lumbar laminectomy L3-S1 revision fusion with L2-S1 decompression and removal of hardware on 12/12/2021 Underlying history of hypertension well-controlled on medications Underlying history of hyperlipidemia maintained on simvastatin Underlying history of coronary artery disease with previous history of angioplasty and stent placement Underlying history of lower extremity DVT Chronic back pain maintained on narcotics for pain management At this time home medication reviewed and reordered Will continue to hold Xarelto at this time Check labs in a.m. Will follow closely during this admission for medical management
[2021-12-12] MEDS: ATORVASTATIN 10 MG TAB PO SCH (21:21)
[2021-12-12] MEDS: ALPRAZolam 1 MG TAB PO SCH (21:21)
[2021-12-12] MEDS: PRAZOSIN 1 MG CAP PO SCH (21:43)
[2021-12-13] MEDS: HYDROcodone/APAP 10-325MG 1 EACH TAB PO PRN ×3 (03:42→17:17)
[2021-12-13] MEDS: HYDROmorphone 0.5 MG/0.5 ML SYRINGE IVP PRN ×4 (05:10→19:33)
[2021-12-13] MEDS: LACTATED RINGERS 1,000 ML IV SCH (07:30)
[2021-12-13] MEDS: ACETAMINOPHEN TAB 325 MG TAB PO SCH ×3 (07:34→17:17)
[2021-12-13] MEDS: GABAPENTIN 300 MG CAP PO SCH ×2 (07:38→21:20)
[2021-12-13] MEDS: ALPRAZolam 1 MG TAB PO SCH ×2 (07:39→21:20)
[2021-12-13] MEDS: atenoloL 50 MG TAB PO SCH (07:39)
[2021-12-13] MEDS: amLODIPine 5 MG TAB PO SCH (07:39)
[2021-12-13] MEDS: lisinopriL 20 MG TAB PO SCH (07:39)
[2021-12-13] MEDS: PRAZOSIN 1 MG CAP PO SCH ×2 (07:39→21:21)
[2021-12-13] MEDS: SENNOSIDES-DOCUSATE SODIUM 1 EACH TAB PO PRN ×2 (07:43→21:24)
--- NOTE | 2021-12-13 12:32 | P.PN ---
Subjective Progress Note Date: 12/13/21 Principal diagnosis: 1. S/P L4-S1 fusion 2. L2-L3 stenosis severe 3. L3-L4 stenosis severe 4. Right lower extremity radiculopathy 5. Neurogenic claudication Patient was seen at bedside this morning resting comfortably sitting up in chair. Patient states he is in a little bit more pain today compared to what he was feeling yesterday. Patient says he did get up this morning and walked around room a bit using walker. He says most of pain is when he changes positions. Patient says most of his pain is over his incision. Patient denies any saddle anesthesia/perineal numbness. Patient denies chest pain, fever, shortness of breath, nausea, vomiting, change in vision, loss/bladder control. Objective - Vital Signs Vital signs: Vital Signs Temp 98.1 F 12/13/21 04:30 Pulse 85 12/13/21 04:30 Resp 20 12/13/21 04:30 BP 125/80 12/13/21 04:30 Pulse Ox 97 12/13/21 09:01 Intake & Output 12/12/21 12/13/21 12/13/21 18:59 06:59 18:59 Intake Total 2450 800 Output Total 1250 1050 Balance 1200 -250 Intake: Intake, IV Titration 290 Amount Lactated Ringers 1,000 ml 240 @ 0 mls/hr IV [facility] Rx#:[id number] ceFAZolin 2 gm In Sodium 50 Chloride 0.9% 50 ml @ 100 mls/hr IVPB Q8H [facility] Rx#: [id number] Oral 2160 800 Output: Drainage 100 400 Back 100 400 Urine 1150 650 Other: Voiding Method Indwelling Catheter Indwelling Catheter # Voids 3 3 - Exam Optifoam dressing is in place and intact over incision. [place] are well aligned. Incision clean, dry, intact. Negative for any fluctuance/purulence. FERNANDO drain will be left in place at this time. 460 mL was output charted at midnight last night. Radial pulses 2+, intact bilaterally. Cap refill under 3 seconds bilaterally in digits of hands. Negative Homans bilaterally. Somewhat tender to palpation over incision. Range of motion is roughly intact in bilateral upper and lower extremities. 4+/5 in all major motor groups. Sensat ion is intact and symmetric bilaterally in upper and lower extremities - Labs CBC & Chem 7: 12/12/21 05:21 12/11/21 09:27 Assessment and Plan Assessment: POD #2 s/p Revision L3-S1 fusion with L2-4 decompression 1. S/P L4-S1 fusion 2. L2-L3 stenosis severe 3. L3-L4 stenosis severe 4. Right lower extremity radiculopathy 5. Neurogenic claudication Plan: 1. S/P L4-S1 fusion; L2-L3 stenosis severe; L3-L4 stenosis severe; Right lower extremity radiculopathy; Neurogenic claudication - surgery performed 12/12/2021 - revision L3-S1 fusion with L2L4 decompression - patient sterile bedside this morning. FERNANDO drain will be left in place at this time. Output at 460 mL as of midnight last night. Plan on replacing optifoam dressing tomorrow vs Friday. Plan on removing drain tomorrow vs Friday. Plan discharge tomorrow vs Friday 2. Appreciate medical management 3. Pain management - [place], Flexeril, gabapentin; Dilaudid only when needed 4. DVT prophylaxis - mechanical 5. GI prophylaxis - senna 6. PT/OT - weightbearing as tolerated with walker. Use brace while up and about 7. Encourage incentive spirometer use 8. Discharge planning - plan discharge home tomorrow, 12/14/2021 versus 12/15/2021 Time with Patient: Less than 30
--- NOTE | 2021-12-13 16:58 | P.PN ---
Subjective Progress Note Date: 12/13/21 Frank Palacio, is a 61-year-old male who was admitted to [facility] by Dr. Solis after presenting with a chief complaint of Low back pain, difficulty with almbulation, and lower extremities radiculopathy, patient has known history of chronic back pain requiring narcotics for pain management, he has known history of lumbar spine surgery in 2015, he also has a history of multiple falls with back injury. Today he underwent Lumbar laminectomy L3-S1 revision fusion with L2 -S1 dec ompression and removal of hardware, he was admitted to medical floor post surgery. Medical consultation was requested for management while hospitalized. Patient has a known history of hypertension, hyperlipidemia, coronary artery disease with previous history of angioplasty and stent placement, no recent stents in the last 12 months, he also has a history of lower extremity DVT followed by Dr. House and maintained on Xarelto. Xarelto was discontinued 10 days ago in anticipation of back surgery. On review of systems patient is alert and oriented 3 he is still complaining of back pain otherwise he denies any complaints at this time, there is no fever or chills no headache or dizziness no chest pain or shortness of breath no cough no nausea or vomiting no abdominal pain no diarrhea and no urinary symptoms. On 12/13/2021 patient was seen and examined on the medical floor he is alert and oriented 3 in no apparent distress he is complaining of back pain otherwise he denies any complaints there is no fever or chills no headache or dizziness no chest pain no shortness of breath no cough no nausea or vomiting no abdominal pain no diarrhea and no urinary symptoms, he is up in a chair today and has been ambulating a few steps with his walker, at this time will continue to withhold Xarelto due to spinal surgery yesterday. Continue with current medications otherwise. Will follow in a.m. possible discharge to home tomorrow. Objective - Vital Signs Vital signs: Vital Signs Temp 98.1 F 12/13/21 04:30 Pulse 85 12/13/21 04:30 Resp 20 12/13/21 04:30 BP 125/80 12/13/21 04:30 Pulse Ox 97 12/13/21 09:01 Intake & Output 12/12/21 12/13/21 12/13/21 18:59 06:59 18:59 Intake Total 2450 800 Output Total 1250 1050 Balance 1200 -250 Intake: Intake, IV Titration 290 Amount Lactated Ringers 1,000 ml 240 @ 0 mls/hr IV [facility] Rx#:[id number] ceFAZolin 2 gm In Sodium 50 Chloride 0.9% 50 ml @ 100 mls/hr IVPB Q8H [facility] Rx#: [id number] Oral 2160 800 Output: Drainage 100 400 Back 100 400 Urine 1150 650 Other: Voiding Method Indwelling Catheter Indwelling Catheter # Voids 3 3 - Exam In general patient is alert and oriented x 3 in no distress HEENT head normocephalic and atraumatic Neck is supple no JVD no goiter no lymphadenopathy no carotid bruit Chest examination is clear to auscultation no crackles no wheezing Cardiac exam reveals regular heart sounds S1 and S2 no gallops no murmurs Abdomen is soft nontender no organomegaly with normal bowel sounds Extremity exam reveals no edema no cyanosis or clubbing Neurological examination reveals no gross focal deficits - Labs CBC & Chem 7: 12/12/21 05:21 12/11/21 09:27 Assessment and Plan Plan: Chronic back pain, with history of previous surgery for lumbar spinal stenosis in 2014, patient underwent lumbar laminectomy L3-S1 revision fusion with L2-S1 decompression and removal of hardware on 12/12/2021 Underlying history of hypertension well-controlled on medications Underlying history of hyperlipidemia maintained on simvastatin Underlying history of coronary artery disease with previous history of angioplasty and stent placement Underlying history of lower extremity DVT Chronic back pain maintained on narcotics for pain management At this time home medication reviewed and reordered Will continue to hold Xarelto at this time Check labs in a.m. Will follow closely during this admission for medical management
[2021-12-13] MEDS: ATORVASTATIN 10 MG TAB PO SCH (21:20)
[2021-12-13] MEDS: CYCLOBENZAPRINE 5 MG TAB PO PRN (21:20)
[2021-12-14] MEDS: HYDROcodone/APAP 10-325MG 1 EACH TAB PO PRN ×4 (00:45→20:26)
[2021-12-14] MEDS: ACETAMINOPHEN TAB 325 MG TAB PO SCH ×4 (03:41→17:30)
[2021-12-14] MEDS: CYCLOBENZAPRINE 5 MG TAB PO PRN (04:12)
[2021-12-14] MEDS: LACTATED RINGERS 1,000 ML IV SCH (06:03)
[2021-12-14] MEDS: HYDROmorphone 0.5 MG/0.5 ML SYRINGE IVP PRN ×2 (08:49→17:30)
[2021-12-14] MEDS: ALPRAZolam 1 MG TAB PO SCH ×2 (08:51→20:26)
[2021-12-14] MEDS: atenoloL 50 MG TAB PO SCH (08:52)
[2021-12-14] MEDS: PRAZOSIN 1 MG CAP PO SCH ×2 (08:52→21:48)
[2021-12-14] MEDS: GABAPENTIN 300 MG CAP PO SCH ×2 (08:52→21:47)
[2021-12-14] MEDS: amLODIPine 5 MG TAB PO SCH (08:52)
[2021-12-14] MEDS: lisinopriL 20 MG TAB PO SCH (08:52)
--- NOTE | 2021-12-14 10:51 | P.PN ---
Subjective Progress Note Date: 12/14/21 Principal diagnosis: 1. S/P L4-S1 fusion 2. L2-L3 stenosis severe 3. L3-L4 stenosis severe 4. Right lower extremity radiculopathy 5. Neurogenic claudication Patient seen at bedside this morning resting comfortably lying semirecumbent in bed. Patient states his pain is under little better control today. Patient does not feel completely comfortable with going home yet today. He says he thinks tomorrow he will be feeling good enough to go home. He says most of pain is when he changes positions. Patient says most of his pain is over his incision. Patient denies any saddle anesthesia/perineal numbness. Patient denies chest pain, fever, shortness of breath, nausea, vomiting, change in vision, loss/bladder control Objective - Vital Signs Vital signs: Vital Signs Temp 98 F 12/14/21 07:52 Pulse 96 12/14/21 09:05 Resp 16 12/14/21 07:52 BP 129/82 12/14/21 09:05 Pulse Ox 95 12/14/21 07:52 Intake & Output 12/13/21 12/14/21 12/14/21 18:59 06:59 18:59 Output Total 310 490 275 Balance -310 -490 -275 Output: Drainage 60 90 Back 60 90 Urine 250 400 275 Other: Voiding Method Indwelling Catheter # Voids 1 - Exam Optifoam dressing was replaced with new one. [place] are well aligned. Incision clean, dry, intact. Negative for any fluctuance/purulence. FERNANDO drain was removed. Drain sponge and Tegaderm was placed over incision drain was. There was minimal serous output when drain was pulled. 90 mL was output charted overnight. Radial pulses 2+, intact bilaterally. Cap refill under 3 seconds bilaterally in digits of hands. Negative Homans bilaterally. Somewhat tender to palpation over incision. Range of motion is roughly intact in bilateral upper and lower extremities. 4+/5 in all major motor groups. Sensation is intact and symmetric bilaterally in upper and lower extremities - Labs CBC & Chem 7: 12/12/21 05:21 12/11/21 09:27 Assessment and Plan Assessment: POD #3 s/p Revision L3-S1 fusion with L2-4 decompression 1. S/P L4-S1 fusion 2. L2-L3 stenosis severe 3. L3-L4 stenosis severe 4. Right lower extremity radiculopathy 5. Neurogenic claudication Plan: 1. S/P L4-S1 fusion; L2-L3 stenosis severe; L3-L4 stenosis severe; Right lower extremity radiculopathy; Neurogenic claudication - surgery performed 12/12/2021 - revision L3-S1 fusion with L2L4 decompression - patient stable at bedside this morning. FERNANDO drain was removed. Output was 90 mL overnight. New optifoam dressing was placed over incision. Incision was CDI. Plan discharge home with health services tomorrow. 2. Appreciate medical management 3. Pain management - [place], Flexeril, gabapentin; Dilaudid only when needed 4. DVT prophylaxis - mechanical 5. GI prophylaxis - senna 6. PT/OT - weightbearing as tolerated with walker. Use brace while up and about 7. Encourage incentive spirometer use 8. Discharge planning - plan discharge home tomorrow, 12/15/2021 Time with Patient: Less than 30
--- NOTE | 2021-12-14 10:55 | P.PN ---
Subjective Progress Note Date: 12/14/21 Frank Palacio, is a 61-year-old male who was admitted to [facility] by Dr. Solis after presenting with a chief complaint of Low back pain, difficulty with almbulation, and lower extremities radiculopathy, patient has known history of chronic back pain requiring narcotics for pain management, he has known history of lumbar spine surgery in 2015, he also has a history of multiple falls with back injury. Today he underwent Lumbar laminectomy L3-S1 revision fusion with L2 -S1 dec ompression and removal of hardware, he was admitted to medical floor post surgery. Medical consultation was requested for management while hospitalized. Patient has a known history of hypertension, hyperlipidemia, coronary artery disease with previous history of angioplasty and stent placement, no recent stents in the last 12 months, he also has a history of lower extremity DVT followed by Dr. House and maintained on Xarelto. Xarelto was discontinued 10 days ago in anticipation of back surgery. On review of systems patient is alert and oriented 3 he is still complaining of back pain otherwise he denies any complaints at this time, there is no fever or chills no headache or dizziness no chest pain or shortness of breath no cough no nausea or vomiting no abdominal pain no diarrhea and no urinary symptoms. On 12/13/2021 patient was seen and examined on the medical floor he is alert and oriented 3 in no apparent distress he is complaining of back pain otherwise he denies any complaints there is no fever or chills no headache or dizziness no chest pain no shortness of breath no cough no nausea or vomiting no abdominal pain no diarrhea and no urinary symptoms, he is up in a chair today and has been ambulating a few steps with his walker, at this time will continue to withhold Xarelto due to spinal surgery yesterday. Continue with current medications otherwise. Will follow in a.m. possible discharge to home tomorrow. On 12/14/2021 patient is alert and oriented 3. Patient still having significant back pain. Patient will likely be DC'd home tomorrow per orthopedic services. At this time patient denies chest pain or shortness of breath. Patient denies nausea vomiting or diarrhea. Patient denies any urinary burning or frequency Objective - Vital Signs Vital signs: Vital Signs Temp 98 F 12/14/21 07:52 Pulse 96 12/14/21 09:05 Resp 16 12/14/21 07:52 BP 129/82 12/14/21 09:05 Pulse Ox 95 12/14/21 07:52 Intake & Output 12/13/21 12/14/21 12/14/21 18:59 06:59 18:59 Output Total 310 490 275 Balance -310 -490 -275 Output: Drainage 60 90 Back 60 90 Urine 250 400 275 Other: Voiding Method Indwelling Catheter # Voids 1 - Exam In general patient is alert and oriented x 3 in no distress HEENT head normocephalic and atraumatic Neck is supple no JVD no goiter no lymphadenopathy no carotid bruit Chest examination is clear to auscultation no crackles no wheezing Cardiac exam reveals regular heart sounds S1 and S2 no gallops no murmurs Abdomen is soft nontender no organomegaly with normal bowel sounds Extremity exam reveals no edema no cyanosis or clubbing Neurological examination reveals no gross focal deficits - Labs CBC & Chem 7: 12/12/21 05:21 12/11/21 09:27 Assessment and Plan Plan: Chronic back pain, with history of previous surgery for lumbar spinal stenosis in 2014, patient underwent lumbar laminectomy L3-S1 revision fusion with L2-S1 decompression and removal of hardware on 12/12/2021 Underlying history of hypertension well-controlled on medications Underlying history of hyperlipidemia maintained on simvastatin Underlying history of coronary artery disease with previous history of ang ioplasty and stent placement Underlying history of lower extremity DVT Chronic back pain maintained on narcotics for pain management At this time home medication reviewed and reordered Will continue to hold Xarelto at this time Check labs in a.m. Will follow closely during this admission for medical management
[2021-12-14] MEDS: ATORVASTATIN 10 MG TAB PO SCH (21:47)
[2021-12-15] MEDS: ACETAMINOPHEN TAB 325 MG TAB PO SCH ×2 (00:55→05:56)
[2021-12-15] MEDS: HYDROcodone/APAP 10-325MG 1 EACH TAB PO PRN ×2 (04:02→10:31)
[2021-12-15] MEDS: amLODIPine 5 MG TAB PO SCH (07:47)
[2021-12-15] MEDS: ALPRAZolam 1 MG TAB PO SCH (07:47)
[2021-12-15] MEDS: lisinopriL 20 MG TAB PO SCH (07:47)
[2021-12-15] MEDS: HYDROmorphone 0.5 MG/0.5 ML SYRINGE IVP PRN (07:48)
[2021-12-15] MEDS: GABAPENTIN 300 MG CAP PO SCH (07:48)
[2021-12-15] MEDS: PRAZOSIN 1 MG CAP PO SCH (07:49)
[2021-12-15] MEDS: atenoloL 50 MG TAB PO SCH (07:49)
--- NOTE | 2021-12-15 10:41 | P.PN ---
Subjective Progress Note Date: 12/15/21 Frank Palacio, is a 61-year-old male who was admitted to [facility] by Dr. Solis after presenting with a chief complaint of Low back pain, difficulty with almbulation, and lower extremities radiculopathy, patient has known history of chronic back pain requiring narcotics for pain management, he has known history of lumbar spine surgery in 2015, he also has a history of multiple falls with back injury. Today he underwent Lumbar laminectomy L3-S1 revision fusion with L2 -S1 dec ompression and removal of hardware, he was admitted to medical floor post surgery. Medical consultation was requested for management while hospitalized. Patient has a known history of hypertension, hyperlipidemia, coronary artery disease with previous history of angioplasty and stent placement, no recent stents in the last 12 months, he also has a history of lower extremity DVT followed by Dr. House and maintained on Xarelto. Xarelto was discontinued 10 days ago in anticipation of back surgery. On review of systems patient is alert and oriented 3 he is still complaining of back pain otherwise he denies any complaints at this time, there is no fever or chills no headache or dizziness no chest pain or shortness of breath no cough no nausea or vomiting no abdominal pain no diarrhea and no urinary symptoms. On 12/13/2021 patient was seen and examined on the medical floor he is alert and oriented 3 in no apparent distress he is complaining of back pain otherwise he denies any complaints there is no fever or chills no headache or dizziness no chest pain no shortness of breath no cough no nausea or vomiting no abdominal pain no diarrhea and no urinary symptoms, he is up in a chair today and has been ambulating a few steps with his walker, at this time will continue to withhold Xarelto due to spinal surgery yesterday. Continue with current medications otherwise. Will follow in a.m. possible discharge to home tomorrow. On 12/14/2021 patient is alert and oriented 3. Patient still having significant back pain. Patient will likely be DC'd home tomorrow per orthopedic services. At this time patient denies chest pain or shortness of breath. Patient denies nausea vomiting or diarrhea. Patient denies any urinary burning or frequency On 12/15/2021 2 patient is alert and oriented 3. Patient reports improvement with back discomfort. Awaiting orthopedic services for discharge home. Patient denies any acute complaints. Patient denies chest pain or shortness breath. Patient denies nausea vomiting or diarrhea. Patient denies any burning or frequency. Discussed with nurse to clarify with orthopedic services when patient can resume anticoagulation. Objective - Vital Signs Vital signs: Vital Signs Temp 98.7 F 12/15/21 05:00 Pulse 81 12/15/21 07:54 Resp 18 12/15/21 05:00 BP 108/67 12/15/21 07:54 Pulse Ox 94 L 12/15/21 05:00 Intake & Output 12/14/21 12/15/21 12/15/21 18:59 06:59 18:59 Intake Total 1130 Output Total 640 Balance 490 Intake: Intake, IV Titration 50 Amount ceFAZolin 2 gm In Sodium 50 Chloride 0.9% 50 ml @ 100 mls/hr IVPB Q8H PENDING SALE TO [facility] Rx#: [id number] Oral 1080 Output: Drainage 90 Back 90 Urine 550 Other: Voiding Method Urinal Urinal # Voids 3 3 - Exam In general patient is alert and oriented x 3 in no distress HEENT head normocephalic and atraumatic Neck is supple no JVD no goiter no lymphadenopathy no carotid bruit Chest examination is clear to auscultation no crackles no wheezing Cardiac exam reveals regular heart sounds S1 and S2 no gallops no murmurs Abdomen is soft nontender no organomegaly with normal bowel sounds Extremity exam reveals no edema no cyanosis or clubbing Neurological examination reveals no gross focal deficits - Labs CBC & Chem 7: 12/12/21 05:21 12/11/21 09:27 Assessment and Plan Plan: Chronic back pain, with history of previous surgery for lumbar spinal stenosis in 2014, patient underwent lumbar laminectomy L3-S1 revision fusion with L2-S1 decompression and removal of hardware on 12/12/2021 Underlying history of hypertension well-controlled on medications Underlying history of hyperlipidemia maintained on simvastatin Underlying history of coronary artery disease with previous history of angioplasty and stent placement Underlying history of lower extremity DVT Chronic back pain maintained on narcotics for pain management At this time home medication reviewed and reordered Will continue to hold Xarelto at this time Check labs in a.m. Will follow closely during this admission for medical managemen Anticipate discharge home today 12/15/2021
[2021-12-15] MEDS: LACTATED RINGERS 1,000 ML IV SCH (11:37)
--- NOTE | 2021-12-15 11:46 | P.DS ---
Providers Date of admission: 12/11/21 17:36 Expected date of discharge: 12/15/21 Attending physician: Stewart Solis DO Consults: 12/12/21 14:03 Consult Physician Routine Consulting Provider: My Zepeda Consult Reason/Comments: Medical Management s/p L2/L3 - S1 decompression and fusion Do you want consulting provider notified?: Yes Primary care physician: My Zepeda Hospital Course: Spine Surgery Discharge Summary Note Admission Date: 12/11/2021 Discharge Date: 12/15/2021 Providers: Katelyn Solis Principal Diagnosis: Pseudarthrosis with hardware failure L4 S1 with severe stenosis L2 to S1 Procedures: Revision Fusion decompression fusion L2 to S1 Discharge Medications: See list, okay to restart Xarelto as medicine sees fit Allergies: See list Hospital Course: The patient was evaluated preoperatively and found to have the diagnosis of pseudoarthrosis with severe stenosis and hardware failure L2 to S1. They underwent appropriate preoperative care and were willing to undergo the intended procedure. They underwent a successful revision decompression fusion, were recovered appropriately and sent to the floor. While on the floor they worked with physical therapy, occupational therapy and nursing to enhance their recovery experience. Their pain was well controlled through their stay and they were started on appropriate medications, DVT ppx modalities, activity and dietary needs. Daily labs were monitored closely, and transfusions were only used when necessary. Medicine as well as other consulting services have made their input and have helped with our team approach and multidisciplinary care. PT milestones have been met and passed and they have made the recommendation of home with home health care for this patient and treating providers agree with this care path. The patient will be discharged home with appropriate medications, instructions and follow-up information and in stable condition. Procedures: Revision decompression L2 to S1 Patient Condition at Discharge: Stable Plan - Discharge Summary Discharge Rx Participant: Yes New Discharge Prescriptions: New Cyclobenzaprine [Flexeril] 10 mg PO HS PRN #40 tab PRN Reason: Spasms HYDROcodone/APAP 10-325MG [[place] 10-325] 1 - 2 tab PO Q4-6H PRN #56 tab PRN Reason: Pain Sennosides/Docusate Sodium [Senna Plus 8.6-50 mg Softgel] 1 each PO BID PRN #20 capsule PRN Reason: Constipation cefaDROXiL [Duricef] 500 mg PO Q12HR #10 cap Gabapentin 300 mg PO TID #90 cap Polyethylene Glycol 3350 [Miralax] 17 gm PO DAILY PRN #527 gm PRN Reason: Constipation No Action amLODIPine BESYLATE [Norvasc] 5 mg PO DAILY Simvastatin [Zocor] 20 mg PO HS lisinopriL [Zestril] 20 mg PO DAILY Cyclobenzaprine [Flexeril] 10 mg PO BID Prazosin HCl 5 mg PO BID Atenolol 50 mg PO DAILY HYDROcodone/APAP 10-325MG [[place] 10] 1 each PO Q6H ALPRAZolam 1 mg PO BID Gabapentin [Neurontin] 300 mg PO TID Rivaroxaban [Xarelto] 2.5 mg PO DAILY Discharge Medication List Atenolol 50 mg PO DAILY 05/02/14 [History] Cyclobenzaprine [Flexeril] 10 mg PO BID 05/02/14 [History] Prazosin HCl 5 mg PO BID 05/02/14 [History] Simvastatin [Zocor] 20 mg PO HS 05/02/14 [History] amLODIPine BESYLATE [Norvasc] 5 mg PO DAILY 05/02/14 [History] lisinopriL [Zestril] 20 mg PO DAILY 05/02/14 [History] HYDROcodone/APAP 10-325MG [[place] 10] 1 each PO Q6H 07/20/15 [History] ALPRAZolam 1 mg PO BID 06/19/16 [History] Gabapentin [Neurontin] 300 mg PO TID 09/04/21 [History] Rivaroxaban [Xarelto] 2.5 mg PO DAILY 09/04/21 [History] Cyclobenzaprine [Flexeril] 10 mg PO HS PRN #40 tab 12/15/21 [Rx] Gabapentin 300 mg PO TID #90 cap 12/15/21 [Rx] HYDROcodone/APAP 10-325MG [[place] 10-325] 1 - 2 tab PO Q4-6H PRN #56 tab 12/15/21 [Rx] Polyethylene Glycol 3350 [Miralax] 17 gm PO DAILY PRN #527 gm 12/15/21 [Rx] Sennosides/Docusate Sodium [Senna Plus 8.6-50 mg Softgel] 1 each PO BID PRN #20 capsule 12/15/21 [Rx] cefaDROXiL [Duricef] 500 mg PO Q12HR #10 cap 12/15/21 [Rx] Follow up Appointment(s)/Referral(s): [facility], [NON-STAFF] - 1 Week Stewart Solis DO [Doctor of Osteopathic Medicine] - 2 Weeks [facility] [NON-STAFF] - 1 Week Activity/Diet/Wound Care/Special Instructions: Spine Discharge and Recovery Instructions Date of Surgery: 12/11/2021 Diagnosis: 1. S/P L4-S1 fusion 2. L2-L3 stenosis severe 3. L3-L4 stenosis severe 4. Right lower extremity radiculopathy 5. Neurogenic claudicatio Procedure: Revision L3-S1 fusion with L2-4 decompression Medications: See medication list OK to restart Xarelto when medical management sees fit All medication refills should be obtained through your primary care doctor or your clinic spine surgeon. Please discuss prescription refills at your follow up appointment. Do not call the hospital for medication refills. Dressing: Leave your dressing in place for a total of 5 days post operatively. Then you may remove your dressing and leave open to air. Keep the area clean and if not able to keep area clean, then cover with sterile gauze and tape. Showering: You may shower 3 days after your procedure allowing soap and water to run over incision. Do not scrub. Do not soak. Blot dry. Follow up: Please confirm a follow up appointment with your surgeon 3 weeks post operatively. Please make an appointment to follow up with your PCP in 1-2 weeks after surgery for evaluation 3 phase, 3-week plan POST OP WEEKS 1-3 1. Lifting/carrying/pushing/pulling limited to less than 5 pounds. 2. Do not sit for longer than 15 minutes at one time. Get up and walk around. Prolonged sitting is NOT advised. If you lay down, see if you can tolerate laying down on you front (belly side) 3. Walk for periods of 15 minutes = 1 mile but no longer; do it multiple times times each day. 4. Ice your low back after activity. POST OP WEEKS 3-6 1. Lifting limited to less than 20 pounds. 2. Do not sit for longer than 30 minutes at a time. Frequently change positions. Use a sit-to stand workstation or take frequent breaks from sitting if you have returned to work. 3. Walk for 30 minutes each day. If possible, do these three or more times a day POST OP WEEKS 6+ At your 6-week appointment we will give you a physical therapy referral to focus on a core stabilization and strengthening program. You should also work on leg & buttock strengthening, hamstring & quadriceps stretching, and continue a low impact aerobic activity program such as swimming, walking, or riding a stationary bicycle. During the initial 6 weeks after your surgery, you are at the highest risk of re-injuring your spine. You should generally avoid BLTs (bending, lifting and twisting combination motions) and follow the above guidelines to reduce the chance of reinjury. You can anticipate post op appointments in our office at approximately 3 weeks and 6 weeks after your surgery. INCISION CARE: If your incision is not draining you do NOT need to cover it with a dressing. Keep your incision clean, dry and intact. In most cases, we apply skin glue, concepción or sutures to the incision at the time of surgery. This will be like a crust or have the appearance of a scab and will fall off in time on its own. The stitches or concepción need to be removed at 3 weeks post op appointment. You may begin to shower 3 days after surgery (this allows the glue to sanabria well). However, please avoid scrubbing the incision site or peeling off any of the skin glue. This will ensure optimal healing of your incision. Also, during this time avoid soaking the incision area in water - this includes swimming pools, hot tubs or baths. No ointments, lotions or oils on the incision until your surgeon allows. Leave concepción, sutures or glue in place. Neurological dysfunction that comes on suddenly can also be a sign of a stroke. Below some common symptoms of a stroke are listed: B - balance difficulty such as sudden onset walking or leaning to one side - NEW E - eye problem such as sudden double vision or trouble seeing on one side - NEW F - Facial weakness or numbness on one side - NEW A - Arm or leg weakness or numbness on one side - NEW S - Slurred speech or difficulty with word finding - NEW T - Time is BRAIN! Call 911 as soon as you recognize these symptoms Diet: Consume a regular diet rich in vegetables and lean protein such as chicken or fish. You should consume in a ratio of approximately 20% fats|40% carbohydrates|40%protein. Vegetables, sweet potatoes, brown rice or quinoa are examples of good carbohydrates. Chips, white bread, cookies and sweets/sugar are examples of bad carbohydrates. Limit your bad carbs, go wild with good carbs. "Life's Simple 7" Guidelines as per [place] [employer] These will help you reclaim your life after surgery and help desk analyst in your recovery, keeping in mind your restrictions. (1) Get Active. Physical activity can help people lose weight, control high blood pressure and cholesterol, feel emotionally better, and sleep better. (2) Control Cholesterol. Avoid a diet high in saturated fat, trans fat, & cholesterol. Limit whole milk & cream, ice cream, butter, egg yolks, processed meats (like sausage and hot dogs), and fatty meats. Choose healthy foods that are low in saturated fat, trans fat and cholesterol which include: Fruits and vegetables, fiber rich grain products (like whole grain pasta and brown rice), lean meat such as chicken, fish, nuts, seeds, and legumes. (3) Eat Better. Eat small portions. Shop at the grocery with a list and do not stray from it. Tips for a healthy diet include: Limit sodium intake to less than 1500mg daily, avoid prepackaged, processed, and fast foods, choose a diet rich in fruits, vegetables, and whole grain, high fiber foods, and limit saturated & cholesterol in your diet. (4) Manage Blood Pressure. If you have high blood pressure, you should have a cuff at home so that you can check your blood pressure regularly. Be sure you have a good cuff. An arm one is generally better than a wrist one. Bring the cuff to a doctor's appointment to validate that the measurements that your cuff are taking are accurate. Take your blood pressure twice daily when you are sitting down and relaxing. Record the numbers in a log and bring this log with you to your doctors' appointments. (5) Lose Weight if your BMI is above 25. A healthy BMI is between 19-25. To calculate Your BMI, you may use a Standard BMI Calculator on the NIH BMI website : <www.nhlbi.nih.gov/guidelines/obesity/BMI/bmicalc.htm>. Weigh oneself daily. If you are overweight, set a goal to lose weight. A pound a week loss if needed is a good target. (6) Reduce Blood Sugar. Limit foods and liquids with "added sugars." (Added sugars include sucrose, fructose, glucose, maltose, dextrose, high fructose corn syrup, corn syrup, concentrated fruit juice and honey). (7) Stop Smoking. If you smoke, quitting smoking is one of the best things that you can do for your health. Smoking increases your risk of heart attack, stroke, and peripheral vascular disease, which is a build-up of plaque in your arteries. Please discard all the cigarettes and lighters in your house. Have a plan for what you will do when you have the urge to smoke. Direct and second- hand smoke shortens your life as well as the lives of your family, friends and others around you. For your health and the health of those around you, please consider quitting! Proper Bending Body Mechanics: Maintain a wide stance with one foot slightly in front of the other. Keep your back straight. Bend utilizing the strength in your hips and knees. Do not bend at the waist. Maintain the lifted object at your waist-level close to your body. Avoid lifting weight that causes immediately pain or pain anywhere in the body afterwards. Smoking/Nicotine If there was ever one thing that you could do to increase your overall health, decrease your risk of cardiovascular problems by about 39% the second you make the choice, it is to STOP SMOKING. Your body's most instant gratification is the second you stop smoking. We have all heard the studies, read the articles but it is true, smoking is extremely bad for your overall health, and moreover it is detrimental to your bone health. Nicotine, IN ANY FORM, kills bone cells, prevents your body from healing fractures, and significantly prolongs healing after surgery. In spine surgery specifically, it increases your risk of not healing your bones to create a fusion and increases your risk of having a revision surgery due to this up to 60%. I know it is hard. I know it feels impossible. But there are ways. Take control of your life. We are here to help you through it. And when you are ready, ask us and we can direct you to help if you desire. Use the START Plan to Quit Smoking (please visit the [employer] website listed below for more information): S = Set a quit date. Choose a date within the next 2 weeks, so you have enough time to prepare without losing your motivation to quit. If you mainly smoke at work, quit on the weekend, so you have a few days to adjust to the change. T = Tell family, friends, and co-workers that you plan to quit. Let your friends and family in on your plan to quit smoking and tell them you need their support and encouragement to stop. Look for a quit brittany who wants to stop smoking as well. You can help each other get through the rough times. A = Anticipate and plan for the challenges you'll face while quitting. Most people who begin smoking again do so within the first 3 months. You can help yourself make it through by preparing ahead for common challenges, such as nicotine withdrawal and cigarette cravings. R = Remove cigarettes and other tobacco products from your home, car, and work. Throw away all your cigarettes (no emergency pack!), lighters, ashtrays, and matches. Wash your clothes and freshen up anything that smells like smoke. Shampoo your car, clean your drapes and carpet, and steam your furniture. T = Talk to your doctor about getting help to quit. Your doctor can prescribe medication to help with withdrawal and suggest other alternatives. If you can't see a doctor, you can get many products over the counter at your local pharmacy or grocery store, including the nicotine patch, nicotine lozenges, and nicotine gum. Resources for Quitting Smoking: <https://www.[place].gov/documents/[facility]/Quit_Tobacco_Resources_for_patients_313 480_7.pdf> Supplementation: Take recommended dosages of Vitamin D and Calcium to help fortify your bones and help them to heal. See your health maintenance packet for dosages and recommended levels. DVT/VTE prophylaxis: You will be given compression stockings from the hospital. Wear these daily for the first two weeks after surgery. You may take them off at night. You may be prescribed a medication to help thin your blood. Take this as directed. If you are not prescribed this medication, early and frequent ambulation has been shown to be the best prophylaxis to deep vein thrombosis and sequelae related to this event. Discharge Disposition: HOME WITH HOME HEALTH SERVICES
[2021-12-15 12:46] VITALS: BP 101/66; PULSE 98; RESP 16; TEMP 98.1
--- NOTE | 2021-12-18 11:14 | P.OP ---
Date of Procedure: 12/11/21 Preoperative Diagnosis: 1. S/P L4-S1 fusion 2. L2-L3 stenosis severe 3. L3-L4 stenosis severe 4. Right lower extremity radiculopathy 5. Neurogenic claudication Postoperative Diagnosis: 1. S/P L4-S1 fusion 2. L2-L3 stenosis severe 3. L3-L4 stenosis severe 4. Right lower extremity radiculopathy 5. Neurogenic claudication 6. Failed hardware L5-S1 with broken screws 7. Pseudoartrhosis L5-S1 8. 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 Exploration of fusion L4-S1 2. Removal of hardware and broken screws L4-S1 3. Revision posteriolateral fusion L3-S1 4. Interobody fusion L3-4 5. Insertion of biomechanical device L3-4 6. L2-4 laminectomy decompression with revision decompressive laminectomy L4-S1 7. Use of intraoperative neuromonitoring 8. Interpretation of intraoperative flouroscopy <1 hr Implants: Removal [employer] Solara Insertion [place] K2 [place] with Amplify Dual X cage Anesthesia: RADHA Surgeon: Stewart Solis Indirect Sales Exec #1: Casey Ramirez (Was present and necessary due to the complexity of the case) Estimated Blood Loss (ml): 350 IV fluids (ml): 3,500 Urine output (ml): 250 Pathology: other (Hardware explants) Condition: stable Disposition: PACU Indications for Procedure: Mr. Palacio last presented to the office on 08/31/2021 for an evaluation of his low back. At that time the patient notes that he has had low back pain for many years, having a lumbar fusion done on 06/03/[address] Martinez. After this operation he notes that he did have any improvements to his symptoms but his pain has gradually returned. This return of pain has come without any injury or trauma after the operation. Since this onset of his symptoms after his operation he has noticed a considerable increase in his pain along with prominent weakness about the bilateral lower extremities, right worse than left. Regarding the lumbar pain he notes that it is diffuse throughout the low back and does radiate down into the bilateral hips. His primary concern at this time is the weakness in the right lower extremity. His symptoms are exacerbated with ambulation and standing for extended periods of time. Due to this he is unable to complete many of his daily functions. Regarding treatments he notes that he has done PT, home exercises, and had 2 lumbar NIECY injections. All of these did not relieve his symptoms. Otherwise the patient does not present to the office with the use of any ambulatory aides. We has discussed different options for treatment at length including continued conservative measures, operative measures and all options inbetween. At this point the patient has tried most all other treatments for his condition and he is ready to explore operative intevention. We discussed these options at length and he was on board with decompression with possible fusion of the lumbar spine. Description of Procedure: The patient was seen and examined in the preoperative area. All preoperative protocols were followed. Informed consent was obtained risks and benefits of the procedure were discussed at length. Risks including bleeding infection damage to the surrounding tissue and risk of reoperation were discussed with the patient. Risk of anesthesia up to and including was a discussed with the patient. These are outlined in the risk review. They were willing to accept these risks and all of the risks of surgery. The patient was given a weight- based dose of antibiotics in the form of 2 g ancef. The patient was seen and evaluated by the anesthesia team who deemed them fit for surgery. The site was marked, the patient was willing to proceed with the procedure. The patient was transferred to the operative suite by the Department of anesthesia. They were then drifted off to sleep by the department anesthesia and GETA was performed. The patient tolerated this well. Gross catheter was placed by nursing staff, atraumatically. Once confirmation of lines and ventilation the patient was transferred to a prone Justin table very carefully. All bony prominences including wrists, elbows, axilla, chest, hips, and thighs, and feet were padded very well. Special attention was paid to the genitalia and these were padded accordingly. SCDs were placed on bilateral lower extremities and were connected. Arms were well padded and placed on arm boards up and out in the 90/90 position. Once in position, again we confirmed good ventilation capabilities and that lines were running appropriately. The patient's lumbar spine was then exposed. 1010s were placed outlining the incision site. Standard alcohol was used to clean the incision site and allowed to dry. C-arm was used to biomark the patient and confirm level for incision which was marked with a skin marker. Operative briefing was performed with all teams and everyone in agreement to proceed. The patient was then prepped and draped in a normal sterile fashion. Timeout was then performed and all parties were in agreement with the procedure to be performed. Midline skin incision was made over the previously by marked area dissection taken down to the fascial layer which was identified and split midline. He and perform careful dissection on the spinous process of L 2 and L3 which were landmarks still available with then performed subperiosteal dissection over the lamina and facet joints of L2-L3 and out over the transverse process of L3. Performed a careful midline dissection over L4 L5 and S1 as there was laminectomy defect in this area we then exposed laterally to reveal the previous hardware exposed the hardware as well as transverse processes of these levels. We then explored the fusion and the hardware in this area there were loose screws at S1 bilaterally there is a broken screw on the right-hand side S1. There is instability noted at L3-L4 with facet hypertrophy. Midline laminotomy defect noted at L5-S1 and partially at L4-L5. We then proceeded with removal of hardware L4 to S1 screws were removed S1 on the right-hand side was broken and had to be drilled out and reversed threaded out we were able to remove it fairly easily however once all the screws removed we turned our attention to replacement of screws. Using a freehand technique placed screws bilaterally using pedicle finder and high-speed bur at L3 under lateral fluoroscopy. We the n used a feeler to confirm the screw holes at L4 bilaterally they were in the pedicle had not been violated we then upsized screws and placed 75 screws into L4 we repeated this at L5 under lateral fluoroscopy. Then turned our attention to S1 screws on the right-hand side there is a large bone void and so this was packed with graft and Theracell anchor for a 8.5 mm screw. We then measured and placed on the [facility] an 8.5 mm screw with anchor with good purchase. We repeated this on the [facility] w/o the anchor. Screws were in good position and confirmed to be in good position on AP fluoroscopic imaging. We then tested screws with intraoperative neuro monitoring and all screws tested above 10 mA. We then turned attention to the decompression a bilateral laminectomy medial facetectomy and foraminal foraminotomy was performed at L2 we then performed a complete facetectomy foraminotomy and laminectomy of L3-L4 we then revised decompressed L4-L5 with midline bilateral laminectomy. This was done with a high-speed bur and Kerrison rongeurs and curettes. We then turned our attention back to L3-L4 there was instability noted within performed interbody arthrodesis at L3-L4. While carefully protecting the dura and exiting nerve root we accessed the L3-L4 disc space discectomy was performed using conner curettes and disc removal materials with pituitary once we have completed a total discect joanne in this area Sized and placed an amplify cage. We packed autograft and allograft anterior to the cage and then under lateral imaging impacted the cage into position while protecting dura and nerve roots completely. Cage expanded well and was in good position. We then post packed the cage with allograft and autograft into the disc space. Once this was completed and the decompression completed then copiously irrigated the wound with 3 L of antibiotic solution followed by 3 L of normal sterile saline and then size cut and bent rods which were then secured into place with set caps. We then placed cross-links in the area. Transverse processes were decorticated and a mixture of allograft and autograft bio 4 was placed in the posterior lateral gutters for posterior lateral fusion. We then placed Surgicel over the dura perform meticulous hemostasis. We final tightened the set caps and made sure everything was in good order. We then placed vancomycin deep within the wound 2 g a drain was placed deep within the wound were proceeded with layered closure. Muscle and fascial layer was closed with #1 Vicryl which was overgrown with a PDS suture and then closed with 0 PDS in the deep subcu tissue 2-0 PDS in the superficial subcu tissue and concepicón in the skin. The drain was sewn in place wound was then cleaned and dressed sterilely with an operative foam dressing drain sponge and Tegaderm. The patient was transferred back to their hospital bed atraumatically. Drain continued to hold suction and were in good position. Patient was then awakened and extubated by the department of anesthesia having tolerated the procedure very well with no complications. They were transferred to the postoperative care unit in stable condition.
== END 2021-12-15 13:45 | disposition home health service (06) | DRG 454 ==
LOC: OR 08:55 → 5NMEDONC 17:35 → OR 17:36 → 5NMEDONC 17:36
PROVIDERS: ADMIT Orthopaedic Surgery; ATTEND Orthopaedic Surgery
PROC: 0SG3071 Fusion of Lumbosacral Joint with Autologous Tissue Substitute, Posterior Approach, Posterior Column, Open Approach (ICD-10-PCS; 2021-12-11)
PROC: 0SP20JZ Removal of Synthetic Substitute from Lumbar Vertebral Disc, Open Approach (ICD-10-PCS; 2021-12-11)
PROC: 0SP40JZ Removal of Synthetic Substitute from Lumbosacral Disc, Open Approach (ICD-10-PCS; 2021-12-11)
PROC: 0ST20ZZ Resection of Lumbar Vertebral Disc, Open Approach (ICD-10-PCS; 2021-12-11)
PROC: 0SG00AJ Fusion of Lumbar Vertebral Joint with Interbody Fusion Device, Posterior Approach, Anterior Column, Open Approach (ICD-10-PCS; principal; 2021-12-11 10:45)
DX: M48.062 Spinal stenosis, lumbar region with neurogenic claudication (principal); M96.0 Pseudarthrosis after fusion or arthrodesis; T84.216A Breakdown (mechanical) of internal fixation device of vertebrae, initial encounter; E78.5 Hyperlipidemia, unspecified; F17.210 Nicotine dependence, cigarettes, uncomplicated; F41.9 Anxiety disorder, unspecified; I10 Essential (primary) hypertension; I25.10 Atherosclerotic heart disease of native coronary artery without angina pectoris; M47.26 Other spondylosis with radiculopathy, lumbar region; M53.2X6 Spinal instabilities, lumbar region; Z20.822 Contact with and (suspected) exposure to COVID-19; Z79.01 Long term (current) use of anticoagulants; Z79.82 Long term (current) use of aspirin; Z79.899 Other long term (current) drug therapy; Z80.1 Family history of malignant neoplasm of trachea, bronchus and lung; Z82.49 Family history of ischemic heart disease and other diseases of the circulatory system; Z86.718 Personal history of other venous thrombosis and embolism; Z91.81 History of falling; Z98.1 Arthrodesis status; Y83.8 Other surgical procedures as the cause of abnormal reaction of the patient, or of later complication, without mention of misadventure at the time of the procedure
CPT/HCPCS: 36415; 71045; 72100; 72131; 80053; 85025; 86850; 86900; 86901; 87635; 94760